=== PATIENT | female | born 1975 | race African-American/Black ===

== ENCOUNTER 2016-12-01 17:26 | Emergency (ER) | payer OTHER, MEDICAID ==
[~2016-12-01] VITALS: Ht 162.6 cm; Wt 100.0 kg
[~2016-12-01 17:26] MED LIST: CYCL-36 PO; DIAZ5 PO; DICL50 PO; ERGO50000 PO; HYDR-3533 PO; NAPR500 PO
[2016-12-01 17:27] VITALS: BP 145/84; PULSE 112; RESP 14; TEMP 98.2; O2SAT 98
[2016-12-01] MEDS ORDERED: ACETAMINOPHEN/HYDROcodone 325 MG/5 MG TAB PO ONE (20:00)
[2016-12-01] MEDS ORDERED: CYCLOBENZAPRINE HCL 10 MG TAB PO ONE (20:00)
--- NOTE | 2016-12-01 20:01 | PD ---
HPI Chief Complaint: Pain: Acute or Chronic Time Seen by Provider: 19:56 Travel History International Travel<30 days: No Contact w/Intl Traveler<30days: No Traveled to known affect area: No History of Present Illness HPI 41-year-old black female presents to emergency department with a one-day history of left hip and left leg pain after stepping off an uneven area of ground. She states she had slow progressive pain in her left buttocks into her left leg. She states the pain is moderate but can be severe with movement. Some relief of the remaining still. Denies any history of back problems. No nausea vomiting. No abdominal pain. No urinary symptoms. No numbness, tingling or weakness. PFSH Past Medical History Narrative Medical Anemia Anemia: Yes Cancer: No Cardiovascular Problems: No Diabetes: No Diminished Hearing: No Gastrointestinal Disorders: Yes (HAS GALLSTONES AND WAS SUPPOSE TO SCHEDULE FOR REMOVAL,NO PROBLEMS WITH IT ) Glaucoma: No Hepatitis: No Hiatal Hernia: No Hypertension: Yes Medical other: No Respiratory: Yes (POSS. SLEEP APNEA) Immunizations Current: Yes Thyroid Disease: No Tetanus Vaccination: > 5 Years Influenza Vaccination: No ?: Not Menopausal: No : 0 Past Surgical History Narrative Surgical Cholecystectomy Cholecystectomy: Yes Pacemaker: No Other Surgery: No Social History Alcohol Use: No Tobacco Use: No Substance Use: No Allergies-Medications (Allergen,Severity, Reaction): Coded Allergies: No Known Allergies (Verified , 12/01/16) Reported Meds & Prescriptions Reported Meds & Active Scripts Active Robaxin (Methocarbamol) 750 Mg Tab 1,500 Mg PO TID [address] (Diclofenac Sodium) 75 Mg Tabdr 75 Mg PO BID Lortab (Hydrocodone-Acetaminophen) 5-325 Mg Tab 1 Tab PO Q8HR PRN Review of Systems Except as stated in HPI: all other systems reviewed are Neg Physical Exam Narrative GENERAL: Well-developed, well-nourished in no apparent distress. Nontoxic appearing. HEAD: Normocephalic, atraumatic. EYES: Pupils equal round and reactive. Extraocular motions intact. No scleral icterus. No injection or drainage. ENT: Nose clear. Throat without erythema, tonsillar hypertrophy or exudate. Uvula midline. Airway patent. NECK: Trachea midline. Supple, nontender, moves head freely. No central bony tenderness or spasm. CARDIOVASCULAR: Regular rate and rhythm without murmurs, gallops, or rubs. RESPIRATORY: Clear to auscultation. Breath sounds equal bilaterally. No wheezes , rales, or rhonchi. GASTROINTESTINAL: Abdomen soft, non-tender, nondistended. No hepato-splenomegaly , or palpable masses. No guarding. EXTREMITIES: No clubbing, cyanosis, or edema. No joint tenderness. Patient complains of pain with internal/external rotation of the left hip. There is no pain around the greater trochanter. BACK: Nontender without deformity. No flank tenderness. Patient has mild tenderness in the left SI region. Positive straight leg raise on the left at 80 . No sensory deficit. Patient has no saddle anesthesia. She is able to heel and toe stand. Decreased for flexion. No gross spasm. NEUROLOGICAL: Awake, alert and oriented x 3 .Cranial nerves grossly intact. Motor and sensory grossly within normal limits. Normal speech. Data Data Last Documented VS Vital Signs Date Time Temp Pulse Resp B/P Pulse Ox O2 Delivery O2 Flow Rate FiO2 12/01/16 17:27 98.2 112 14 145/84 98 Orders Hip, Uni(Ap&Lat) Wo Ap Pelvis (12/01/16 19:53) Spine, Lumbar - Ltd (Ap & Lat) (12/01/16 19:53) Acetamin-Hydrocod 325-5 Mg ([place] 5-325 (12/01/16 20:00) Cyclobenzaprine (Flexeril) (12/01/16 20:00) MDM Medical Decision Making Medical Screen Exam Complete: Yes Emergency Medical Condition: Yes Medical Record Reviewed: Yes Interpretation(s) Lumbar spine: Negative for acute bony injury. Left hip: Negative for acute bony injury. Differential Diagnosis MDM: High Differential diagnoses: AAA,Fracture, sprain, strain, HNP, nerve or arthritis. Narrative Course Patient is given Lortab 5 and Flexeril 10 by mouth. X-rays are negative. This is lumbar radiculopathy Diagnosis Primary Impression: Lumbar radiculopathy Patient Instructions: General Instructions, Narcotic given in the ED Departure Forms: Tests/Procedures, Work Release Special Instructions: No work 3 days. Med/Other Pt SpecificInfo: Prescription(s) given Scripts Methocarbamol (Robaxin)750 Mg Tab1,500 Mg PO TID 10 Days Prov:Cheryl Mast DO 12/01/[address] 75 Mg Tabdr75 Mg PO BID #20 TAB Prov:Cheryl Mast DO 12/01/16 Hydrocodone-Acetaminophen (Lortab)5-325 Mg Tab1 Tab PO Q8HR PRN (PAIN) #12 TAB Prov:Cheryl Mast DO 12/01/16 Disposition: 01 DISCHARGE HOME Condition: Stable Ace Dickinson Dec 01, 2016 20:01
[2016-12-01] MEDS ORDERED: DICL75TA PO (20:12)
[2016-12-01] MEDS ORDERED: ROBA750T PO (20:12)
[2016-12-01] MEDS ORDERED: HYDR-3533 PO (20:12)
--- NOTE | 2016-12-01 20:51 | RADRPT ---
EXAM DATE/TIME: 12/01/2016 20:17 [facility] COMPARISON: No previous studies available for comparison. INDICATIONS : Patient states no known injury, but pain in left hip region since yesterday after getting out of car. MEDICAL HISTORY : None. SURGICAL HISTORY : None. ENCOUNTER: Initial ACUITY: 1 day PAIN SCORE: 9/10 LOCATION: Left Hip. FINDINGS: A two view examination of the left hip was performed. The primary and secondary trabecular pattern o f the femoral neck is intact. The hip joint is of normal width without significant sclerosis or bony hypertrophy. The acetabulum is grossly intact. CONCLUSION: Normal examination for a patient of this age. Ace Pelayo MD on December 01, 2016 at 20:49 Board Certified Radiologist. This report was verified electronically.
--- NOTE | 2016-12-01 20:51 | RADRPT ---
EXAM DATE/TIME: 12/01/2016 20:17 [facility] COMPARISON: No previous studies available for comparison. INDICATIONS : Patient states no known injury, but pain in left hip region since yesterday after getting out of car. MEDICAL HISTORY : None. SURGICAL HISTORY : None. ENCOUNTER: Initial ACUITY: 1 day PAIN SCORE: 0/10 LOCATION: Bilateral L-spine. FINDINGS: No acute fracture spondylolisthesis. They are mild changes of degenerative disc disease and facet art hropathy in the lower lumbar spine. CONCLUSION: 1. No acute findings. Early changes of degenerative disc disease. Ace Pelayo MD on December 01, 2016 at 20:48 Board Certified Radiologist. This report was verified electronically.
== END 2016-12-01 20:50 | disposition home or self-care (01) ==
LOC: NETRI 17:26
DX: M54.16 Radiculopathy, lumbar region (principal)
CPT/HCPCS: 72100; 73502; 99283